=== PATIENT | female | born 1990 | race Caucasian/White ===

== ENCOUNTER 2020-02-25 12:25 | Emergency (ER) | payer OTHER | END 2020-02-25 14:41 | disposition left against medical advice (07) | LOC: ER1 12:25 | DX: R51.9 Headache, unspecified (principal); H53.8 Other visual disturbances; Z53.21 Procedure and treatment not carried out due to patient leaving prior to being seen by health care provider ==

== ENCOUNTER 2020-03-18 01:07 | Emergency (ER) | payer OTHER | END 2020-03-18 04:22 | disposition home or self-care (01) | LOC: ER1 01:07 | DX: H53.8 Other visual disturbances (principal); R51.9 Headache, unspecified; R42 Dizziness and giddiness; H92.01 Otalgia, right ear; Z20.822 Contact with and (suspected) exposure to COVID-19 | CPT/HCPCS: 81001; 84703; 99284; U0002 ==

== ENCOUNTER → 2020-07-30 | Outpatient (CLI) | payer OTHER | LOC: EMI 07-22 16:00 | DX: H54.3 Unqualified visual loss, both eyes (principal) | CPT/HCPCS: 70551 ==